=== PATIENT | male | born 1965 | race Caucasian/White ===

== ENCOUNTER 2021-06-10 16:42 | Emergency (ER) | payer OTHER ==
[~2021-06-10] VITALS: Ht 185.4 cm; Wt 81.7 kg
[2021-06-10] MEDS ORDERED: LEVOTHYROXINE150 MC1 PO (16:49)
[2021-06-10] MEDS ORDERED: LISINOPRIL20 MG PO (16:49)
[2021-06-10] MEDS ORDERED: SLEEPING (16:50)
[2021-06-10] MEDS ORDERED: XYOSTED100 MG/0.5 SUBQ (16:50)
[2021-06-10 17:51] LABS: ABSOLUTE BASOPHILS 0.1 thou/uL (0.0-0.2); ABSOLUTE EOSINOPHILS 0.1 thou/uL (0.0-0.7); ABSOLUTE LYMPHOCYTES 1.1 thou/uL (0.8-5.3); ABSOLUTE MONOCYTES 0.4 thou/uL (0.0-1.2); ABSOLUTE NEUTROPHILS 7.6 thou/uL (1.6-8.1); BASOPHILS 1.2 %; EOSINOPHILS 1.2 %; HEMATOCRIT 47.7 % (42.0-52.0); LYMPHOCYTES 11.6 %; MCH 34.7 pg (26.0-34.0); MCHC 35.5 g/dL (28.0-37.0); MCV 97.8 fL (80.0-100.0); MONOCYTES 4.7 %; MPV 7.2 fl. (7.2-11.1); NUCLEATED RBCS 0 /100WBC; PLATELET COUNT* 227 thou/uL (150-400); POLYS 81.3 %; RBC 4.88 mil/uL (4.50-6.00); RDW-CV 13.8 % (10.5-14.5); WBC 9.3 thou/uL (4.0-11.0)
[2021-06-10] MEDS ORDERED: HYDROCODON-ACE1 EAC7 PO (17:59)
[2021-06-10] MEDS ORDERED: ZESTORETIC 20-1 EACH PO (17:59)
[2021-06-10 18:02] LABS: CALCIUM 8.6 mg/dL (8.5-10.1); CREATININE 1.1 mg/dL (0.6-1.3); POTASSIUM 3.7 mmol/L (3.5-5.1)
[2021-06-10 18:07] LABS: ALBUMIN 4.3 g/dL (3.4-5.0); TOTAL BILIRUBIN 0.4 mg/dL (<0.1-1.0)
[2021-06-10 19:08] VITALS: BP 200/101
--- NOTE | 2021-06-11 14:13 | EKG ---
[place] [address] ELECTROCARDIOGRAM REPORT Name: JABARILOU Cathy Room: [facility]#: [id number] Admission: 06/10/21 Attend Phys: Discharge: 06/10/21 Date of : 69 Date of Service: 06/10/211802 Report #: [id number] THIS REPORT FOR: //name// [facility] ED Test Date: 2021-06-10 Test Time: 18:03:07 Pat Name: LOU BARBOZA Department: Room: Gender: Answerer: ARACELI : 1965 Requested By: Valentin Matson Order Number: [id number] MD: Don Guillen Measurements Intervals [place] Rate: 71 P: 80 MA: 172 QRS: 38 QRSD: 106 T: 66 QT: 378 QTc: 411 Interpretive Statements Sinus rhythm Probable left atrial enlargement ST elev, probable normal early repol pattern No previous ECG available for comparison Electronically Signed On 06-11-2021 14:13:38 CDT by Don Guillen [email or web address] <ELECTRONICALLY SIGNED> By: Don Guillen MD, [facility] 06/11/21 1413 1803 180 Don Guillen MD, [facility] /EPI
== END 2021-06-10 19:09 | disposition home or self-care (01) ==
LOC: M.ERS 16:42
PROVIDERS: Family Medicine
DX: R51.9 Headache, unspecified (principal); I11.0 Hypertensive heart disease with heart failure; I10 Essential (primary) hypertension; E03.9 Hypothyroidism, unspecified; Z79.2 Long term (current) use of antibiotics